=== PATIENT | female | born 1955 | race Caucasian/White ===

== ENCOUNTER 2024-04-18 08:52 | Day surgery (SDC) | payer OTHER ==
[2024-04-18 09:01] LABS: Absolute Eosinophils 0.1 K/uL (0-0.5); Absolute Lymphocytes (CBC) 1.4 K/uL (0.7-4.9); Absolute Monocytes 0.4 K/uL (0.1-1.3); Absolute Neutrophil 2.3 K/uL (1.8-8.0); Basophils % 0.9 % (0-1.3); Eosinophils % 1.6 % (0-4.4); Hematocrit 42.4 % (36.0-45.0); Hemoglobin 14.1 g/dL (12.0-15.0); Lymphocytes % 33.5 % (15.3-44.8); MCHC 33.2 g/dL (32.0-36.0); MCV 93.6 fL (80-100); MPV 7.9 fL (7.6-11.3); Monocytes % 8.9 % (3.3-12.3); Neutrophils % 55.1 % (41.7-73.7); Platelets 251 thou/uL (152-406); RBC Red Blood Cell Count 4.53 M/uL (3.86-4.86); Red Cell Distribution Width 13.7 % (12.1-15.2)
[2024-04-18] MEDS ORDERED: Ringers Lactate 1,000 ML IV ONE (09:25)
[2024-04-18] MEDS ORDERED: GLYCOPYRROLATE 0.2 MG/ML SYR ONE (11:30)
[2024-04-18] MEDS ORDERED: LIDOCAINE 1% MPF 30 ML VIAL ONE (11:30)
[2024-04-18] MEDS ORDERED: propofoL 200 MG/20 ML VIAL IV ONE (11:30)
[2024-04-18 13:20] VITALS: TEMP 97
[2024-04-18 13:21] VITALS: BP 114/66; O2SAT 99
--- NOTE | 2024-04-19 12:21 | EKG ---
Test Date: 2024-04-18 Test Time: 08:45:40 Percussion Tuner: NEHAL MEASUREMENT RESULTS: Intervals: Rate: 57 W[place]: 152 QRSD: 84 QT: 436 QTc: 424 [place]: P: 76 WY: 152 QRS: 35 T: 60 INTERPRETIVE STATEMENTS: Sinus bradycardia Low voltage QRS Borderline ECG No previous ECG available for comparison Electronically Signed On 04-19-24 12:17:42 CDT by Leandro To
== END 2024-04-18 13:15 | disposition home or self-care (01) ==
LOC: OR 08:52
PROVIDERS: ATTEND Surgery
PROC: 0DBM8ZX Excision of Descending Colon, Via Natural or Artificial Opening Endoscopic, Diagnostic (ICD-10-PCS; 2024-04-18)
PROC: 0DBH8ZX Excision of Cecum, Via Natural or Artificial Opening Endoscopic, Diagnostic (ICD-10-PCS; principal; 2024-04-18 12:00)
DX: Z12.11 Encounter for screening for malignant neoplasm of colon (principal); K57.30 Diverticulosis of large intestine without perforation or abscess without bleeding; K64.8 Other hemorrhoids; D12.0 Benign neoplasm of cecum; D12.4 Benign neoplasm of descending colon
CPT/HCPCS: 36415; 80048; 85025; 88305; 93005; J2001; J2704; J7120